=== PATIENT | female | born 1955 | race Caucasian/White ===

== ENCOUNTER 2024-04-29 08:22 | Outpatient (CLI) | payer OTHER ==
[~2024-04-29 08:22] MED LIST: ATACAND32 MG; ATORVASTATIN CA40 MG; FENOFIBRATE40 MG; HYOSCYAMINE0.125 M1 SL; Intestinex CAP PO; METFORMIN HCL500 M1; OXYC1TAB9 PO; SYNTHROID88 MCG; TOPROL XL50 M1
== END 2024-04-29 08:23 | disposition home or self-care (01) ==
LOC: NUCLEAR 08:22
PROVIDERS: ATTEND Internal Medicine Pulmonary Disease
DX: I26.09 Other pulmonary embolism with acute cor pulmonale (principal)
CPT/HCPCS: 78582; A9540